=== PATIENT | male | born 1960 | race Two or more races ===

== ENCOUNTER → 2024-06-21 | Outpatient (CLI) | payer BC, SELFPAY ==
[2024-06-21 11:52] LABS: Collection Type, Urine Clean Catch; Squamous Epithelial Cell,Urine 0 /hpf (0-5)
[2024-06-21 12:04] LABS: Basophils % (Auto) 1 % (0-2.5); Eosinophils # (Auto) 0.1 Thou/mm3 (0.0-0.5); Eosinophils % (Auto) 1 % (0-10); Hematocrit 42.1 % (41.0-53.0); Hemoglobin 15.2 g/dL (13.5-16.0); Immature Granulocytes % (Auto) 0 % (0-0); Immature Granulocytes Auto 0.01 Thou/mm3 (0.00-0.00); Lymphocytes # (Auto) 2.4 Thou/mm3 (1.0-4.8); Lymphocytes % (Auto) 46 % (10-50); Mean Corpuscular HGB Conc 36.1 g/dl (31.0-37.0); Mean Corpuscular Hemoglobin 34.5 pg (25.0-35.0); Mean Corpuscular Volume 96 fL (80-100); Monocytes # (Auto) 0.4 Thou/mm3 (0.0-0.8); Monocytes % (Auto) 8 % (0-12); Neutrophils # (Auto) 2.3 Thou/mm3 (1.8-7.7); Neutrophils % (Auto) 44 % (37-80); Nucleated Red Blood Cell % 0 /100 WBC (0); Platelet Count 144 Thou/mm3 (140-440); RDW Standard Deviation 42.3 fL (35.1-43.9); White Blood Count 5.1 Thou/mm3 (3.8-10.6)
[2024-06-21 12:06] LABS: Bilirubin,Urine Negative (Negative); Blood,Urine Trace (Negative); Clarity,Urine Clear (Clear/Hazy); Color,Urine Lt-Yellow (Lt Yel-Yel); Glucose, Urine Negative (Negative); Ketones,Urine Negative (Negative); Leukocyte Esterase,Urine Negative (Negative); Nitrite,Urine Negative (Negative); Protein,Urine Negative (Neg - Trace); RBC,Urine 3 /hpf (0-3); Specific Gravity,Urine 1.019 (1.001-1.035); Urobilinogen,Urine Negative mg/dL (0.0-1.0); WBC,Urine < 1 /hpf (0-5)
[2024-06-21 12:12] LABS: Glucose Estimated Average 103 mg/dL (80-131); Hemoglobin A1C 5.2 % Hgb (4.8-6.0)
[2024-06-21 12:17] LABS: Alanine Aminotransferase 22 U/L (10-49); Albumin, Serum 3.8 gm/dL (3.4-4.8); Albumin/Globulin Ratio 1.2 (1.2-2.2); Alkaline Phosphatase 80 U/L (46-116); Anion Gap 8 (7-16); Aspartate Amino Transferase 33 U/L (0-34); BUN/Creatinine Ratio 17 Ratio (12-20); Blood Urea Nitrogen 19 mg/dL (9-23); Calcium 8.9 mg/dL (8.3-10.6); Calcium (Corrected) 9.1 mg/dL (8.5-10.1); Cardiac Risk Estimate 1.4 RATIO (4.0-6.7); Chloride 105 mMol/L (98-107); Cholesterol 92 mg/dL (132-200); Creatinine (Component) 1.1 mg/dL (0.6-1.3); Globulin 3.1 gm/dL (2.3-3.5); Glucose 109 mg/dL (74-106); HDL Cholesterol 64 mg/dL (40-60); LDL Cholesterol,Calculated 21 mg/dL (0-130); Osmolality,Calculated 282 (275-295); Potassium 4.2 mMol/L (3.4-5.1); Sodium 140 mMol/L (136-145); Thyroid Stimulating Hormone 2.04 uIU/mL (0.55-4.78); Total Protein 6.9 gm/dL (5.7-8.2); Triglycerides 37 mg/dL (30-150); eGFR > 60 See Note
[2024-06-21 12:20] LABS: Creatinine MALB Rnd Ur 102 mg/dL (30-125); Microalbumin Creat Ratio 3 mg/gCrea (<30); Microalbumin, Random Urine 3 mg/L (0-300)
== END | disposition home or self-care (01) ==
LOC: COPL 10:59
PROVIDERS: PCP Family Medicine; Referring Provider Family Medicine; Visit Provider Family Medicine
DX: E11.9 Type 2 diabetes mellitus without complications (principal)
CPT/HCPCS: 36415; 80053; 80061; 81001; 82043; 82570; 83036; 84443; 85025

== ENCOUNTER 2024-07-09 07:32 | Emergency (ER) | payer BC, SELFPAY ==
[2024-07-09 07:32] VITALS: BMI 28.8
[2024-07-09 07:45] VITALS: BP 168/80; PULSE 64; RESP 16; TEMP 36.6; O2SAT 97
[2024-07-09] MEDS: TRANEXAMIC ACID INJ 1,000 MG/10 ML VIAL 1000 MG INH (07:59)
--- NOTE | 2024-07-09 08:05 | PC.NURSE ---
TXA medication given to Eliseo ADRIAN.
--- NOTE | 2024-07-09 09:06 | EDNOTE_ITS ---
<Statement entered by Sarai Garzon MD - 07/09/24 15:04> As co-signing physician, I was present and available for consult prn. I concur with the plan and care as documented by the midlevel provider. ED Epistaxis RME/HPI General Chief complaint: Epistaxis/Nasal Foreign Body Stated complaint: EPISTAXIS L NARE X1.5HR Time Seen by Provider: 07/09/24 07:49 Arrival date/time: 07/09/24 07:32 64-year-old male with no significant medical problems presents for concerns for bleeding from his left nare. Patient reports is not on blood thinners patient ports no headache dizziness weakness Limitations: no limitations Related Data Previous Rx's ?Medication ?Instructions ?Recorded azithromycin 250 mg tablet 500 mg PO first day PRN bro nchitis 07/11/15 (Zithromax) #6 mg Promethazine Hcl/Dextromethorphan 1 tsp PO Q4-6HRPRN P RN COUGH OR 03/25/16 SYRUP * (PHENERGAN DM SYRUP *) CONGESTION #1 mL albuterol sulfate 90 mcg/actuation 2 puff inhalation Q 6HR PRN COUGH 03/25/16 aerosol inhaler (ProAir HFA) OR CONGESTION #1 inh Allergies Allergy/AdvReac Type Severity Reaction Status Date / Time NKA* Allergy Uncoded 07/09/24 07:34 Review of Systems Review of Systems Systems Reviewed: All systems reviewed, normal except as documented Constitutional Constitutional: Reports system reviewed and no additional complaints, except as documented, Denies fever(s) and Denies headache(s) Eyes Eyes: Reports system reviewed and no additional complaints, except as documented and Denies blurry vision ENT Ears, Nose, Mouth, and Throat: Reports system reviewed and no additional complaints, except as documented, Denies headache(s), Denies nasal congestion, Denies nasal discharge and Reports other (Epistaxis left nare) Cardiovascular Cardiovascular: Reports system reviewed and no additional complaints, except as documented, Denies chest pain and Denies dyspnea Respiratory Respiratory: Reports system reviewed and no additional complaints, except as documented, Denies chest congestion, Denies cough and Denies dyspnea Gastrointestinal Gastrointestinal: Reports system reviewed and no additional complaints, except as documented and Denies abdominal pain Integumentary/Breasts Skin/Breast: Reports system reviewed and no additional complaints, except as documented and Denies rash Neurologic Neurologic: Reports system reviewed and no additional complaints, except as documented, Reports as per HPI and Denies headache(s) Past Medical History Social History SMOKING STATUS: Never smoker ED Exam General Limitations: Present no limitations General appearance: Present alert and in no apparent distress Head Head exam: Present atraumatic Eye Eye exam: Present normal appearance, PERRL and EOMI ENT ENT exam: Present mucous membranes moist Expanded ENT Exam Nasal speculum exam: Left: epistaxis Neck Neck exam: Present normal inspection, full ROM and trachea midline Chest Chest inspection: Present normal inspection and symmetric chest wall rise Respiratory Respiratory exam: Present normal lung sounds bilaterally Cardiovascular Cardiovascular exam: Present regular rate, normal rhythm and normal heart sounds Abdominal Exam Abdominal exam: Present soft and normal bowel sounds Extremities Exam Extremities exam: Present normal inspection and full ROM Back Exam Back exam: Present normal inspection and full ROM Neurological Exam Neurological exam: Present alert, oriented X3 and CN II-XII intact Psychiatric Psychiatric exam: Present normal affect and normal mood Skin Skin exam: Present warm, dry, intact and normal color Course Quality Measures none Orders Category Date Time Status Tranexamic Acid Inj Med 07/09/24 08:00 Discontinued 1,000 mg INH X1 ONE Vital Signs Vital signs: Vital Signs Temperature 97.8 F 07/09/24 07:45 Pulse Rate 64 07/09/24 07:45 Respiratory Rate 16 07/09/24 07:45 Blood Pressure 168/80 H 07/09/24 07:45 Pulse Oximetry (%) 97 07/09/24 07:45 Oxygen Delivery Method Room Air 07/09/24 07:45 O2 saturation 97% room air within the limits Procedures -ED Epistaxis Control Time Out Performed: Yes Nostril: left Nose Prepped With: other (TXA) Direct Inspection: yes Clots Removed by: blowing nose Cautery Used: none Device Inserted: nasal tampon Device Size: 5 Patient Tolerated Procedure: Well Epistaxis MDM Narrative MDM Narrative:: 64-year-old male with no significant medical problems presents for concerns for bleeding from his left nare. Patient reports is not on blood thinners patient ports no headache dizziness weakness On exam patient well-appearing patient does not appear ill or toxic patient does not appear in any acute distress On exam patient has mild bleeding from left nare Initially patient's nose was packed with TXA patient continues to bleed therefore nasal packing applied Patient has no posterior bleeding Patient struck to return in 2 to 3 days for packing removal For emergent concerns patient instructed return immediately Patient data External records reviewed:: [facility] previous records Clinical information provided by:: patient Social determinants that could affect healthcare access:: none Patient has the following chronic illnesses:: None How is presenting disease/condition affected by chronic disease/condition?: no chronic disease Evaluation data The following diagnostics were reviewed and interpreted by me:: other (specify) (N/A) Lab and/or radiology exams considered but not ordered:: Considered not ordered Interpretation Summary: N/A Medications / Prescriptions Medications or Prescriptions considered but not ordered:: Given Medication administrations:: Medication Administration History Discontinued Medications Tranexamic Acid (Tranexamic Acid Inj 1,000 Mg/10 Ml Vial) 1,000 mg INH X1 ONE; Protocol Stop: 07/09/24 08:01 Last Admin: 07/09/24 07:59 Dose: 1,000 mg Documented By: VG Given Consultations Consultation(s) initiated? (list below): No Diagnosis Epistaxis Differential Diagnosis: anterior epistaxis and posterior epistaxis Most likely diagnosis given after review of the tests above:: Epistaxis Admission Indicated Admission indicated?: not indicated Admission Request Was there a request for admission?: No Disposition Plan Disposition Plan: Discharge Discharge Attestation Discharge Attestation: The patient and all family members were given an opportunity to ask questions and understood the discharge instructions. Discharge instructions specifically effects, indications for sooner follow up or return to the emergency department, and the expected course of current diagnosis. Patient condition: Stable Discharge Plan Plan Patient Disposition: HOME (Self Care) Disposition Comment: Stable Prescriptions/Referrals Prescriptions/Med Rec: No Action azithromycin [Zithromax] 250 MG tablet 500 mg PO first day PRN (Reason: bronchitis) Qty: 6 0RF albuterol sulfate [ProAir HFA] 8.5 GM HFA aerosol inhaler 2 puff Inhalation Q6HR PRN (Reason: COUGH OR CONGESTION) Qty: 1 0RF Promethazine Hcl/Dextromethorphan SYRUP * (PHENERGAN DM SYRUP *) 473 ML syrup 1 tsp PO Q4-6HRPRN PRN (Reason: COUGH OR CONGESTION) Qty: 1 0RF Referrals: Jose Pringel MD [Primary Care Provider] - In 1 week Problem List Clinical Impression: Left-sided epistaxis Patient/Caregiver Discharge Instructions Education Materials: ED Epistaxis (Adult) Additional Instructions: Please follow up with your primary care doctor in the next 24-48hrs for any worsening symptoms return here immediately Print Language: German Stand Alone Forms: Jasmin Award Info., Work/School Release, Patient Portal Info Letter PA/RESOURCE RECOVERY ENGINEER Supervising Physician PA/RESOURCE RECOVERY ENGINEER Supervising Physician: Dr. GARZON
== END 2024-07-09 10:11 | disposition home or self-care (01) ==
PROVIDERS: Emergency Provider Emergency Medicine; PCP Family Medicine
DX: R04.0 Epistaxis (principal)
CPT/HCPCS: 30901; 99283; J3490

== ENCOUNTER 2024-07-12 11:11 | Emergency (ER) | payer BC, SELFPAY ==
[2024-07-12 11:32] VITALS: BP 157/82; PULSE 72; RESP 17; TEMP 36.9; O2SAT 97; BMI 28.3
--- NOTE | 2024-07-12 12:08 | PD.EDADULT ---
ED General RME/HPI General Chief complaint: General Adult/Misc Complain Stated complaint: Rhino Rocket removal Time Seen by Provider: 07/12/24 11:26 Arrival date/time: 07/12/24 11:11 64-year-old male presents to the emergency department today for Rhino Rocket removal was placed on last visit by myself Limitations: no limitations Related Data Previous Rx's ?Medication ?Instructions ?Recorded azithromycin 250 mg tablet 500 mg PO first day PRN bronchitis 07/11/15 (Zithromax) #6 mg Promethazine Hcl/Dextromethorphan 1 tsp PO Q4-6HRPRN PRN COUGH OR 03/25/16 SYRUP * (PHENERGAN DM SYRUP *) CONGESTION #1 mL albuterol sulfate 90 mcg/actuation 2 puff inhalation Q6HR PRN COUGH 03/25/16 aerosol inhaler (ProAir HFA) OR CONGESTION #1 inh Allergies Allergy/AdvReac Type Severity Reaction Status Date / Time NKA* Allergy Uncoded 07/12/24 11:12 Review of Systems Review of Systems Systems Reviewed: All systems reviewed, normal except as documented Constitutional Constitutional: Reports system reviewed and no additional complaints, except as documented, Denies fever(s) and Denies headache(s) Eyes Eyes: Reports system reviewed and no additional complaints, except as documented and Denies blurry vision ENT Ears, Nose, Mouth, and Throat: Reports system reviewed and no additional complaints, except as documented, Denies headache(s), Denies nasal congestion and Denies nasal discharge Cardiovascular Cardiovascular: Reports system reviewed and no additional complaints, except as documented, Denies chest pain and Denies dyspnea Respiratory Respiratory: Reports system reviewed and no additional complaints, except as documented, Denies chest congestion, Denies cough and Denies dyspnea Gastrointestinal Gastrointestinal: Reports system reviewed and no additional complaints, except as documented and Denies abdominal pain Integumentary/Breasts Skin/Breast: Reports system reviewed and no additional complaints, except as documented and Denies rash Neurologic Neurologic: Reports system reviewed and no additional complaints, except as documented, Reports as per HPI and Denies headache(s) Past Medical History Social History SMOKING STATUS: Never smoker ED Exam General Limitations: Present no limitations General appearance: Present alert and in no apparent distress Head Head exam: Present atraumatic Eye Eye exam: Present normal appearance, PERRL and EOMI ENT ENT exam: Present normal exam, normal oropharynx and mucous membranes moist Neck Neck exam: Present normal inspection, full ROM and trachea midline Chest Chest inspection: Present normal inspection and symmetric chest wall rise Respiratory Respiratory exam: Present normal lung sounds bilaterally Cardiovascular Cardiovascular exam: Present regular rate, normal rhythm and normal heart sounds Abdominal Exam Abdominal exam: Present soft and normal bowel sounds Extremities Exam Extremities exam: Present normal inspection and full ROM Back Exam Back exam: Present normal inspection and full ROM Neurological Exam Neurological exam: Present alert, oriented X3 and CN II-XII intact Psychiatric Psychiatric exam: Present normal affect and normal mood Skin Skin exam: Present warm, dry, intact and normal color Course Quality Measures none Vital Signs Vital signs: Vital Signs Temperature 98.4 F 07/12/24 11:32 Pulse Rate 72 07/12/24 11:32 Respiratory Rate 17 07/12/24 11:32 Blood Pressure 157/82 H 07/12/24 11:32 Pulse Oximetry (%) 97 07/12/24 11:32 Oxygen Delivery Method Room Air 07/12/24 11:32 O2 saturation 97% room air within normal limits MDM Patient data External records reviewed:: [facility] previous records Clinical information provided by:: patient Social determinants that could affect healthcare access:: none Patient has the following chronic illnesses:: None How is presenting disease/condition affected by chronic disease/condition?: no chronic disease Evaluation data The following diagnostics were reviewed and interpreted by me:: other (specify) (N/A) Lab and/or radiology exams considered but not ordered:: Consider not ordered Interpretation Summary: N/A Medications Medications considered but not ordered:: Given Medication administrations:: Given Consultations Consultation(s) initiated? (list below): No Diagnosis Differential Diagnosis ED Complaint MDM: Rhino Rocket will removal Most likely diagnosis given after review of the tests above:: Rhino Rocket removal Admission Indicated Admission indicated?: not indicated Explain why admission is indicated or not indicated:: No criteria Admission Request Was there a request for admission?: No Disposition Plan Disposition Plan: Discharge Discharge Attestation Discharge Attestation: The patient and all family members were given an opportunity to ask questions and understood the discharge instructions. Discharge instructions specifically effects, indications for sooner follow up or return to the emergency department, and the expected course of current diagnosis. Patient condition: Stable Medical Decision Making MDM Narrative MDM Narrative: 64-year-old male presents to the emergency department today for Rhino Rocket removal was placed on last visit by myself Patient has a Rhino Rocket in his left nare it is removed its entirety patient has no bleeding Patient observed for approximately 15 minutes there is no bleeding at this time patient be discharged home Patient discharged home in no distress to follow-up with primary care doctor in the next 24 to 48 hours and for any worsening symptoms to return to the ER immediately Differential Diagnosis Differential Diagnosis: Rhino Rocket will removal Medical Records Medical records reviewed: Yes I reviewed the patient's medical records. Discharge Plan Plan Patient Disposition: HOME (Self Care) Disposition Comment: Stable Prescriptions/Referrals Prescriptions/Med Rec: No Action azithromycin [Zithromax] 250 MG tablet 500 mg PO first day PRN (Reason: bronchitis) Qty: 6 0RF albuterol sulfate [ProAir HFA] 8.5 GM HFA aerosol inhaler 2 puff Inhalation Q6HR PRN (Reason: COUGH OR CONGESTION) Qty: 1 0RF Promethazine Hcl/Dextromethorphan SYRUP * (PHENERGAN DM SYRUP *) 473 ML syrup 1 tsp PO Q4-6HRPRN PRN (Reason: COUGH OR CONGESTION) Qty: 1 0RF Problem List Clinical Impression: Encounter for removal of nasal packing Patient/Caregiver Discharge Instructions Additional Instructions: Please follow up with your primary care doctor in the next 24-48hrs for any worsening symptoms return here immediately Print Language: Bengali Stand Alone Forms: Jasmin Award Info., Work/School Release, Patient Portal Info Letter PA/CATTLE SHIPPER Supervising Physician PA/JOYCELYN Supervising Physician: Dr triana
== END 2024-07-12 12:30 | disposition home or self-care (01) ==
LOC: SERX 13:18
PROVIDERS: Emergency Provider Emergency Medicine
DX: Z48.00 Encounter for change or removal of nonsurgical wound dressing (principal)
CPT/HCPCS: 99282

== ENCOUNTER 2024-07-16 09:58 | Emergency (ER) | payer BC, SELFPAY ==
[2024-07-16 10:29] VITALS: BP 152/81; PULSE 88; RESP 16; TEMP 37.1; O2SAT 97; BMI 28.3
--- NOTE | 2024-07-16 10:41 | EDNOTE_ITS ---
ED Epistaxis RME/HPI General Chief complaint: Epistaxis/Nasal Foreign Body Stated complaint: INTERMITTENT BLOODY NOSE X 8 DAYS Source: patient Arrival date/time: 07/16/24 09:58 64-year-old male with no known medical history presents to the emergency room with a chief complaint of a nosebleed that occurred yesterday afternoon. Patient states he has had intermittent nosebleeds for the last 8 days and was seen here multiple days ago for a nosebleed in which a nasal packing was placed to stop the bleeding. Today the patient has not had any nosebleeds. Mode of arrival: ambulatory Limitations: no limitations Related Data Previous Rx's ?Medication ?Instructions ?Recorded azithromycin 250 mg tablet 500 mg PO first day PRN bro nchitis 07/11/15 (Zithromax) #6 mg Promethazine Hcl/Dextromethorphan 1 tsp PO Q4-6HRPRN P RN COUGH OR 03/25/16 SYRUP * (PHENERGAN DM SYRUP *) CONGESTION #1 mL albuterol sulfate 90 mcg/actuation 2 puff inhalation Q 6HR PRN COUGH 03/25/16 aerosol inhaler (ProAir HFA) OR CONGESTION #1 inh Allergies Allergy/AdvReac Type Severity Reaction Status Date / Time No Known Allergies Allergy Verified 07/16/24 10:02 Review of Systems Review of Systems Systems Reviewed: All systems reviewed, normal except as documented Constitutional Constitutional: Reports system reviewed and no additional complaints, except as documented, Denies fatigue, Denies fever(s), Denies headache(s) and Denies weakness Eyes Eyes: Reports system reviewed and no additional complaints, except as documented, Denies blurry vision and Denies change in vision ENT Ears, Nose, Mouth, and Throat: Reports system reviewed and no additional complaints, except as documented, Denies otalgia, Denies headache(s), Denies nasal congestion, Denies throat swelling and Denies vertigo Cardiovascular Cardiovascular: Reports system reviewed and no additional complaints, except as documented, Denies chest pain, Denies dyspnea and Denies dyspnea on exertion Respiratory Respiratory: Reports system reviewed and no additional complaints, except as documented, Denies chest congestion, Denies cough, Denies dyspnea, Denies dyspnea on exertion and Denies wheezing Gastrointestinal Gastrointestinal: Reports system reviewed and no additional complaints, except as documented, Denies abdominal pain, Denies cramping, Denies nausea and Denies vomiting Genitourinary Genitourinary: Reports system reviewed and no additional complaints, except as documented, Denies dysuria and Denies hematuria Musculoskeletal Musculoskeletal: Reports system reviewed and no additional complaints, except as documented and Denies back pain Integumentary/Breasts Skin/Breast: Reports system reviewed and no additional complaints, except as documented and Denies wounds Neurologic Neurologic: Reports system reviewed and no additional complaints, except as documented, Denies confusion, Denies headache(s), Denies lack of coordination, Denies vertigo and Denies weakness Psychiatric Psychiatric: Reports system reviewed and no additional complaints, except as documented, Denies anxiety, Denies confusion, Denies depression, Denies paranoia, Denies suicidal ideation and Denies tactile hallucinations Endocrine Endocrine: Reports system reviewed and no additional complaints, except as documented and Denies fatigue Hematologic/Lymphatic Hematologic/Lymphatic: Reports system reviewed and no additional complaints, except as documented and Denies lymphadenopathy Allergic/Immunologic Allergic/Immunologic: Reports system reviewed and no additional complaints, except as documented, Denies throat swelling, Denies urticaria and Denies wheezing Past Medical History Social History SMOKING STATUS: Former smoker ED Exam General Limitations: Present no limitations General appearance: Present alert and in no apparent distress Head Head exam: Present atraumatic Eye Eye exam: Present normal appearance, PERRL and EOMI ENT ENT exam: Present normal exam, normal oropharynx and mucous membranes moist Expanded ENT Exam Nasal speculum exam: Bilateral: normal Mouth exam: Present normal external inspection Teeth exam: Present normal inspection Throat exam: Present normal inspection Neck Neck exam: Present normal inspection, full ROM and trachea midline Chest Chest inspection: Present normal inspection and symmetric chest wall rise Respiratory Respiratory exam: Present normal lung sounds bilaterally Cardiovascular Cardiovascular exam: Present regular rate, normal rhythm and normal heart sounds Abdominal Exam Abdominal exam: Present soft and normal bowel sounds Extremities Exam Extremities exam: Present normal inspection and full ROM Back Exam Back exam: Present normal inspection and full ROM Neurological Exam Neurological exam: Present alert, oriented X3 and CN II-XII intact Psychiatric Psychiatric exam: Present normal affect and normal mood Skin Skin exam: Present warm, dry, intact and normal color Course Quality Measures none Vital Signs Vital signs: Vital Signs Temperature 98.7 F 07/16/24 10:29 Pulse Rate 88 07/16/24 10:29 Respiratory Rate 16 07/16/24 10:29 Blood Pressure 152/81 H 04/15/25 10:29 Pulse Oximetry (%) 97 07/16/24 10:29 Oxygen Delivery Method Room Air 07/16/24 10:29 Epistaxis MDM Narrative MDM Narrative:: 64-year-old male with no known medical history presents to the emergency room with a chief complaint of a nosebleed that occurred yesterday afternoon. Patient states he has had intermittent nosebleeds for the last 8 days and was seen here multiple days ago for a nosebleed in which a nasal packing was placed to stop the bleeding. Today the patient has not had any nosebleeds. At this time there is no bleeding. The patient's last nosebleed was yesterday afternoon. Patient states he was able to control it within 5 minutes. Patient states he was here to the emergency room because his nosebleeds have not stop. Patient denies any other signs or symptoms. On examination there is no bleeding to his left nare, there is no discharge and there is no foreign body. I looked inside the nose and there is no obvious source of where his bleeding is coming from. The patient denies being on any blood thinners and states he does not have any other symptoms or bleeding anywhere else. I spoke to the patient and told him that since there is no bleeding at this time to follow-up with his primary care provider for an ENT referral. I spoke to the patient and given strict return precautions to return to the emergency room for any evidence of worsening signs or symptoms including nosebleed that he is unable to control. Patient data External records reviewed:: [facility] previous records Clinical information provided by:: patient Social determinants that could affect healthcare access:: none Patient has the following chronic illnesses:: No chronic illness How is presenting disease/condition affected by chronic disease/condition?: no chronic disease Evaluation data The following diagnostics were reviewed and interpreted by me:: lab results and radiology exam(s) Lab and/or radiology exams considered but not ordered:: Labs and radiology exams considered in order Interpretation Summary: N/A Medications / Prescriptions Medications or Prescriptions considered but not ordered:: No medication given Medication administrations:: No medication given Consultations Consultation(s) initiated? (list below): No Diagnosis Epistaxis Differential Diagnosis: anterior epistaxis and posterior epistaxis Most likely diagnosis given after review of the tests above:: Epistaxis Admission Indicated Admission indicated?: not indicated Admission Request Was there a request for admission?: No Disposition Plan Disposition Plan: Discharge Discharge Attestation Discharge Attestation: The patient and all family members were given an opportunity to ask questions and understood the discharge instructions. Discharge instructions specifically effects, indications for sooner follow up or return to the emergency department, and the expected course of current diagnosis. Patient condition: Stable Discharge Plan Plan Patient Disposition: HOME (Self Care) Disposition Comment: Stable Prescriptions/Referrals Prescriptions/Med Rec: No Action azithromycin [Zithromax] 250 MG tablet 500 mg PO first day PRN (Reason: bronchitis) Qty: 6 0RF albuterol sulfate [ProAir HFA] 8.5 GM HFA aerosol inhaler 2 puff Inhalation Q6HR PRN (Reason: COUGH OR CONGESTION) Qty: 1 0RF Promethazine Hcl/Dextromethorphan SYRUP * (PHENERGAN DM SYRUP *) 473 ML syrup 1 tsp PO Q4-6HRPRN PRN (Reason: COUGH OR CONGESTION) Qty: 1 0RF Problem List Clinical Impression: Epistaxis Patient/Caregiver Discharge Instructions Education Materials: ED Epistaxis (Adult) Additional Instructions: Please follow-up with your primary care provider in the next 24 to 48 hours. Your primary care provider will send you a referral to an ENT specialist for further management of your epistaxis. Today you are no longer bleeding. Your last nosebleed was yesterday. Please avoid any nose blowing, any nose picking, and if the bleeding starts again sit up and lean forward pinch the soft part of your nose tightly for 10 minutes without letting go. Avoid lifting heavy objects or doing too much work right away. A humidifier or vaporizer at home can help with your symptoms. For any evidence of worsening signs or symptoms of a nosebleed that you are unable to control and stop for more than 10 minutes please return to the emergency room immediately. Print Language: Estonian Stand Alone Forms: Jasmin Award Info., Patient Portal Info Letter PA/ORACLE BRM DEVELOPER Supervising Physician REHANA/JOYCELNY Supervising Physician: Dr. Davalos
[2024-07-16 11:15] VITALS: BP 146/82; RESP 16; TEMP 37.1; O2SAT 97
== END 2024-07-16 11:15 | disposition home or self-care (01) ==
LOC: SERX 10:51
PROVIDERS: Emergency Provider Emergency Medicine; PCP Family Medicine
DX: R04.0 Epistaxis (principal)
CPT/HCPCS: 99281

== ENCOUNTER → 2024-12-17 | Outpatient (CLI) | payer BC, SELFPAY ==
[2024-12-17 16:50] LABS: Glucose Estimated Average 108 mg/dL (80-131); Hemoglobin A1C 5.4 % Hgb (4.8-6.0)
== END | disposition home or self-care (01) ==
LOC: COPL 15:22
PROVIDERS: PCP Family Medicine; Referring Provider Family Medicine; Visit Provider Family Medicine
DX: E11.9 Type 2 diabetes mellitus without complications (principal)
CPT/HCPCS: 36415; 83036